=== PATIENT | male | born 1965 | race Caucasian/White ===

== ENCOUNTER → 2017-09-11 | Outpatient (CLI) | payer BC ==
[~2017-09-11] MED LIST: AMARYL1 MG PO; AMARYL4 MG PO; ANAPROX DS550 MG PO; ASPIRIN81 MG PO; AUGMENTIN 875 M1 TAB PO; BIAXIN500 MG PO; CELEBREX200 MG PO; CIPRODEX 0.3%-7.5 ML OT; CLARITIN10 MG PO; CORTISPORIN SUS10 ML OT; FISH OIL 10001000 MG PO; FLEXERIL5 MG PO; HYDROCODONE BIT1 T11 PO; LANTUS100 U/ML SC; LIPITOR40 MG PO; LISINOPRIL20 MG; Lovenox40 MG/0.4 PO; MOTRIN800 MG PO; Metformin Hydr500 MG PO; NORCO 325 MG-101 TAB PO; PRAVACHOL40 MG PO; PREDNICOT20 MG PO; ROBITUSSIN AC 10 MG/ PO; SKELAXIN800 MG PO; TRAMADOL HCL50 MG PO; TRAMADOL50 MG PO; TRIMOX500 MG PO; VICODIN 5/500 505 MG PO; VICODIN 500 MG-1 TAB PO; VITAMIN B COMPL1 CAP PO; ZITHROMAX Z PA250 MG PO
[2017-09-11 10:52] LABS: LIPASE 311 U/L (73-393)
== END | disposition home or self-care (01) ==
LOC: LAB 10:05
DX: K85.90 Acute pancreatitis without necrosis or infection, unspecified (principal)

== ENCOUNTER 2017-10-04 05:43 | Emergency (ER) | payer OTHER ==
[~2017-10-04] VITALS: Ht 177.8 cm; Wt 108.0 kg
[2017-10-04 05:46] VITALS: BP 135/97
[2017-10-04] MEDS ORDERED: ZITHROMAX250 MG PO (06:17)
[2017-10-04] MEDS ORDERED: MUCINEX DM 30/61 TAB PO (06:17)
== END 2017-10-04 06:34 | disposition home or self-care (01) ==
LOC: ED 05:43
DX: J20.9 Acute bronchitis, unspecified (principal); Z79.899 Other long term (current) drug therapy; Z79.4 Long term (current) use of insulin; Z88.6 Allergy status to analgesic agent

== ENCOUNTER 2017-10-04 17:52 | Emergency (ER) | payer OTHER ==
[~2017-10-04] VITALS: Ht 177.8 cm; Wt 108.0 kg
[~2017-10-04 17:52] MED LIST changes: +MUCINEX DM 30/61 TAB PO; +ZITHROMAX250 MG PO
[2017-10-04 17:55] VITALS: BP 125/89
== END 2017-10-04 18:25 | disposition home or self-care (01) ==
LOC: ED 17:52
DX: H10.9 Unspecified conjunctivitis (principal); F17.200 Nicotine dependence, unspecified, uncomplicated; Z88.6 Allergy status to analgesic agent; Z79.899 Other long term (current) drug therapy

== ENCOUNTER 2017-10-07 22:55 | Emergency (ER) | payer OTHER ==
[~2017-10-07] VITALS: Wt 108.0 kg
[~2017-10-07 22:55] MED LIST changes: +GUAIFEN-CODEIN118 ML PO; +MEDROL DOSEPAK4 MG PO; +OMNICEF300 MG PO; +PROAIR HFA8.5 GM INH
[2017-10-08 00:08] VITALS: BP 128/95
== END 2017-10-08 00:25 | disposition home or self-care (01) ==
LOC: ED 22:55
DX: H66.92 Otitis media, unspecified, left ear (principal); J40 Bronchitis, not specified as acute or chronic; J02.9 Acute pharyngitis, unspecified; F10.10 Alcohol abuse, uncomplicated; Z88.8 Allergy status to other drugs, medicaments and biological substances; Z79.899 Other long term (current) drug therapy

== ENCOUNTER → 2018-02-21 | Outpatient (CLI) | payer OTHER ==
[2018-02-21 09:27] LABS: CHOLESTEROL 138 mg/dL (<200); HDL CHOLESTEROL 40 mg/dl (40-60); LDL CHOLESTEROL 43 mg/dL (9-159); SGPT/ALT 44 U/L (12-78); TRIGLYCERIDES 273 mg/dl (<150); VLDL CHOLESTEROL 55 mg/dL (6-40)
== END | disposition home or self-care (01) ==
LOC: LAB 00:29
DX: E11.65 Type 2 diabetes mellitus with hyperglycemia (principal); E78.2 Mixed hyperlipidemia

== ENCOUNTER 2018-04-16 10:29 | Emergency (ER) | payer OTHER ==
[~2018-04-16] VITALS: Ht 177.8 cm; Wt 103.4 kg
[2018-04-16 10:31] VITALS: BP 139/81
== END 2018-04-16 10:57 | disposition home or self-care (01) ==
LOC: ED 10:29
DX: S39.012A Strain of muscle, fascia and tendon of lower back, initial encounter (principal); Z88.6 Allergy status to analgesic agent; Z79.4 Long term (current) use of insulin; Z79.84 Long term (current) use of oral hypoglycemic drugs; Z79.899 Other long term (current) drug therapy; Z98.890 Other specified postprocedural states; X50.0XXA Overexertion from strenuous movement or load, initial encounter; Y93.89 Activity, other specified; Y92.89 Other specified places as the place of occurrence of the external cause; Y99.8 Other external cause status

== ENCOUNTER → 2018-12-27 | Outpatient (CLI) | payer OTHER | END | disposition home or self-care (01) | LOC: RAD 09:26 | DX: M54.5 Low back pain (principal); M25.552 Pain in left hip ==

== ENCOUNTER 2020-10-10 12:36 | Emergency (ER) | payer OTHER ==
[2020-10-10 12:46] VITALS: BP 148/91
[2020-10-10] MEDS ORDERED: METFORMIN HYD1000 MG PO (12:58)
[2020-10-10] MEDS ORDERED: JANUVIA100 MG PO (13:03)
[2020-10-10] MEDS ORDERED: CYCLOBENZAPRINE5 M3 PO (13:18)
[2020-10-10] MEDS ORDERED: MEDROL DOSEPAK4 MG PO (13:18)
== END 2020-10-10 13:37 | disposition home or self-care (01) ==
LOC: ED 12:36
DX: M54.16 Radiculopathy, lumbar region (principal); I10 Essential (primary) hypertension; E11.9 Type 2 diabetes mellitus without complications; Z88.8 Allergy status to other drugs, medicaments and biological substances; Z79.899 Other long term (current) drug therapy; Z79.84 Long term (current) use of oral hypoglycemic drugs

== ENCOUNTER 2023-08-27 11:36 | Emergency (ER) | payer OTHER ==
[~2023-08-27] VITALS: Ht 177.8 cm; Wt 95.3 kg
[~2023-08-27 11:36] MED LIST changes: +CYCLOBENZAPRINE5 M3 PO; +JANUVIA100 MG PO; +METFORMIN HYD1000 MG PO
[2023-08-27 11:45] VITALS: BP 148/86
== END 2023-08-27 13:05 | disposition home or self-care (01) ==
LOC: ED 11:36
DX: J06.9 Acute upper respiratory infection, unspecified (principal); Z20.822 Contact with and (suspected) exposure to COVID-19; Z88.8 Allergy status to other drugs, medicaments and biological substances; Z79.899 Other long term (current) drug therapy; Z98.890 Other specified postprocedural states